=== PATIENT | female | born 1985 | race Caucasian/White ===

== ENCOUNTER 2019-09-28 11:20 | Outpatient (CLI) | payer OTHER, SELFPAY ==
[2019-09-28] VITALS (9 sets, daily range): BP systolic 117–134; BP diastolic 55–81; PULSE 86–113
[2019-09-28 12:03] LABS: Basophils Percent Auto 0.1 % (0.2-1.2); Eosinophils Percent Auto 0.3 % (0-4.4); Hematocrit 34.4 % (37.0-47.0); Hemoglobin 10.8 g/dL (12.0-15.0); Immature Granulocyte Absolute 0.06 K/mm3 (0.00-0.031); Immature Granulocyte Percent A 0.6 % (0-0.5); Lymphocytes Absolute Auto 1.51 K/mm3 (0.9-3.2); Lymphocytes Percent Auto 15.6 % (18.3-44.2); Mean Corpuscular HGB Conc 31.4 g/dl (32-36); Mean Corpuscular Hemoglobin 26.3 pg (26-34); Mean Corpuscular Volume 83.9 fl (80-100); Mean Platelet Volume 10.2 fl (7.4-10.4); Monocytes Absolute Auto 0.7 K/mm3 (0.1-0.6); Monocytes Percent Auto 6.7 % (2.6-8.5); Neutrophils Absolute Auto 7.4 K/mm3 (1.3-6.7); Neutrophils Percent Auto 76.7 % (45.5-73.1); Platelet Count Result 268 k/mm3 (150-375); Red Cell Distribution Width 13.3 % (11.5-14.5); White Blood Count 9.7 K/mm3 (4.5-10.0)
[2019-09-28 12:05] LABS: Add Urine Microscopic? NO; Appearance Urine Clear (Clear); Bilirubin Urine Negative (Negative); Blood Urine Negative (Negative); Color Urine Colorless (Yellow); Glucose Urine UA Negative (Negative); Ketones Urine Negative (Negative); Leukocyte Esterase Ur Negative LEU/UL (Negative); Nitrate Urine Negative (Negative); Protein Urine Negative (Negative); Urobilinogen Urine Negative mg/dL (<2.0)
[2019-09-28 12:06] LABS: Specific Grav Ur 1.003 (1.001-1.035)
[2019-09-28 12:12] LABS: Creatinine Urine 12.3 mg/dL; Total Protein Urine Random 13 mg/dL
[2019-09-28 12:16] LABS: Alanine Aminotransferase 15 U/L (4-35); Albumin Level 3.5 g/dL (3.5-5.1); Alkaline Phosphatase 121 U/L (38-126); Aspartate Amino Transferase 22 U/L (14-36); Bilirubin,Total 0.3 mg/dL (0.2-1.3); Blood Urea Nitrogen 8 mg/dL (7-17); Calcium 8.8 mg/dL (8.4-10.2); Carbon Dioxide 22 mmol/L (22-30); Chloride 107 mmol/L (98-107); Estimated Glomerular Filt Rate > 60; Glucose 110 mg/dL (65-105); Sodium 135 mmol/L (137-145); Uric Acid 2.8 mg/dL (2.5-7.5)
--- NOTE | 2019-09-28 13:26 | PM.OBTRLD ---
OB - Triage/Final Diagnosis Visit Information Date of evaluation: 09/28/19 Reason for evaluation: other (htn) Evaluation Laboratory results: Laboratory Tests 09/28/19 09/28/19 09/28/19 11:50 11:50 11:50 WBC 9.7 RBC 4.10 L Hgb 10.8 L Hct 34.4 L MCV 83.9 MCH 26.3 MCHC 31.4 L RDW 13.3 Plt Count 268 MPV 10.2 Immature Gran % (Auto) 0.6 H Neut % (Auto) 76.7 H Lymph % (Auto) 15.6 L [place] % (Auto) 6.7 Eos % (Auto) 0.3 Baso % (Auto) 0.1 L Lymph # (Auto) 1.51 [place] # (Auto) 0.7 H Eos # (Auto) 0.0 Baso # (Auto) 0.0 Abs Immat Gran (auto) 0.06 H Absolute Neuts (auto) 7.4 H Absolute Nucleated RBC 0.0 Nucleated RBC % 0.0 Sodium 135 L Potassium 4.0 Chloride 107 Carbon Dioxide 22 BUN 8 Creatinine 0.50 L Estim Creat Clear Calc Not Reportable Estimated GFR > 60 Glucose 110 H Uric Acid 2.8 Calcium 8.8 Total Bilirubin 0.3 AST 22 ALT 15 Alkaline Phosphatase 121 Total Protein 7.0 Albumin 3.5 Urine Color Urine Appearance Urine pH Ur Specific [place] Urine Protein Urine Glucose (UA) Urine Ketones Ur Blood (Man) Urine Nitrate Urine Bilirubin Urine Urobilinogen Leukocyte Esterase Rfl U Random Total Protein 13 Urine Creatinine 12.3 09/28/19 11:50 WBC RBC Hgb Hct MCV MCH MCHC RDW Plt Count MPV Immature Gran % (Auto) Neut % (Auto) Lymph % (Auto) [place] % (Auto) Eos % (Auto) Baso % (Auto) Lymph # (Auto) [place] # (Auto) Eos # (Auto) Baso # (Auto) Abs Immat Gran (auto) Absolute Neuts (auto) Absolute Nucleated RBC Nucleated RBC % Sodium Potassium Chloride Carbon Dioxide BUN Creatinine Estim Creat Clear Calc Estimated GFR Glucose Uric Acid Calcium Total Bilirubin AST ALT Alkaline Phosphatase Total Protein Albumin Urine Color Colorless Urine Appearance Clear Urine pH 7.0 Ur Specific [place] 1.003 Urine Protein Negative Urine Glucose (UA) Negative Urine Ketones Negative Ur Blood (Man) Negative Urine Nitrate Negative Urine Bilirubin Negative Urine Urobilinogen Negative Leukocyte Esterase Rfl Negative U Random Total Protein Urine Creatinine Vital signs: Vital Signs - 24 hr 09/28/19 11:44 09/28/19 12:00 09/28/19 12:01 Pulse Rate 100 113 H 96 Blood Pressure 134/80 128/62 Blood Pressure [Right Arm] 134/80 09/28/19 12:16 09/28/19 12:31 09/28/19 12:46 Pulse Rate 91 86 89 Blood Pressure 117/69 119/60 123/55 L Blood Pressure [Right Arm] 09/28/19 13:01 09/28/19 13:15 Pulse Rate 104 H 95 Blood Pressure 122/81 132/75 Blood Pressure [Right Arm]
--- NOTE | 2019-09-28 13:27 | PM.IMHP ---
H&P: HPI History of Present Illness Chief complaint: pih Narrative: Angelica Christianson is a 33 year old female her 2 para 1 with last menstrual period of 01/10/2019, EDC of 10/17/2019, presenting at 37 and half weeks gestation for repeat section. Her previous section was because of present -induced hypertension. Blood pressures have been worsening she has negative PIH labs that this is how it began last time. In light of her good dates and worsening blood pressure she is admitted for repeat section. Review of Systems Review of Systems: All systems reviewed & are unremarkable except as noted in HPI and below Meds Home Medications and Allergies Home Medications Medication Instructions Recorded Confirmed Type multivit [id number]-zgacli 1-dha 1 cap PO DAILY 05/11/19 09/28/19 History [PNV-DHA] ergocalciferol (vitamin D2) 50,000 unit PO WEEKLY 09/28/19 09/28/19 History Allergies Allergy/AdvReac Type Severity Reaction Status Date / Time amoxicillin Allergy Hives Verified 05/11/19 17:58 Vital Signs Vital Signs - 24 hr 09/28/19 11:44 09/28/19 12:00 09/28/19 12:01 Pulse Rate 100 113 H 96 Blood Pressure 134/80 128/62 Blood Pressure [Right Arm] 134/80 09/28/19 12:16 09/28/19 12:31 09/28/19 12:46 Pulse Rate 91 86 89 Blood Pressure 117/69 119/60 123/55 L Blood Pressure [Right Arm] 09/28/19 13:01 09/28/19 13:15 Pulse Rate 104 H 95 Blood Pressure 122/81 132/75 Blood Pressure [Right Arm] Exam Const: General: no acute distress Eyes: General: appearance normal, both eyes and all related structures Neck: Neck: supple and no JVD Thyroid: thyroid normal Resp: Effort & Inspection: normal respiratory effort Auscultation: clear to auscultation bilaterally Cardio: Rate: regular rate Rhythm: regular rhythm GI: Inspection: non-distended GI Palp: Yes Soft to palpation, No Tenderness to palpation present (GI) and No Guarding due to palpation present (GI) Auscultation: normal bowel sounds : General: Yes bladder normal to palpation External Female Exam: normal external appearance Speculum Exam - Vagina: normal vaginal discharge and No vaginal bleeding Speculum Exam - Cervix: nontender Bimanual exam- vagina & uterus: bladder normal to palpation and No Cervical tenderness present OB/external & speculum: No vaginal bleeding Skin: General skin exam: no rashes or lesions noted Extrem: General: normal to inspection and no edema Psych: Mental Status: mental status grossly normal Affect: normal affect H&P: Results Labs Labs: Short CBC 09/28/19 Range/Units 11:50 WBC 9.7 (4.5-10.0) K/mm3 Hgb 10.8 L (12.0-15.0) g/dL Hct 34.4 L (37.0-47.0) % Plt Count 268 (150-375) k/mm3 BMP 09/28/19 11:50 Sodium 135 L Potassium 4.0 Chloride 107 Carbon Dioxide 22 BUN 8 Creatinine 0.50 L Glucose 110 H Calcium 8.8 Liver Function 09/28/19 Range/Units 11:50 Total Bilirubin 0.3 (0.2-1.3) mg/dL AST 22 (14-36) U/L ALT 15 (4-35) U/L Alkaline Phosphatase 121 (38-126) U/L Albumin 3.5 (3.5-5.1) g/dL Urine 09/28/19 Range/Units 11:50 Urine Color Colorless (Yellow) Urine Appearance Clear (Clear) Urine pH 7.0 (5.0-9.0) Ur Specific [place] 1.003 (1.001-1.035) Urine Protein Negative (Negative) mg/dL Urine Glucose (UA) Negative (Negative) mg/dL Assessment and Plan Additional Plan Impression: 37 and half week with worsening hypertension Plan: Repeat low-transverse section
== END 2019-09-28 13:30 | disposition home or self-care (01) ==
LOC: ANHOBOP 11:26 → ANHOBPP 11:27
PROVIDERS: Family Provider Obstetrics & Gynecology; Visit Provider Obstetrics & Gynecology
DX: O13.9 Gestational [pregnancy-induced] hypertension without significant proteinuria, unspecified trimester (principal)
CPT/HCPCS: 36415; 59025; 80053; 81003; 82570; 84156; 84550; 85025; 99199

== ENCOUNTER 2019-11-06 08:22 | Outpatient (CLI) | payer OTHER, SELFPAY ==
[2019-11-06 08:39] LABS: Hematocrit 35.3 % (37.0-47.0); Hemoglobin 11.1 g/dL (12.0-15.0)
[2019-11-06 12:49] LABS: Rapid Plasma Reagin Non-Reactive (NonReactive)
== END 2019-11-06 08:23 | disposition home or self-care (01) ==
LOC: ANHLAB 08:24
PROVIDERS: Visit Provider Obstetrics & Gynecology
DX: Z01.818 Encounter for other preprocedural examination (principal)
CPT/HCPCS: 36415; 85014; 85018; 86592; 86850; 86900; 86901

== ENCOUNTER 2019-11-08 05:25 | Inpatient (IN) | payer OTHER, SELFPAY ==
--- NOTE | 2019-10-18 14:01 | PC.NURSE ---
VERIFIED WITH PATIENT AND OR SCHEDULE --C/S ON 11/08/19 AT 0730 PATIENT GIVEN REQUISITION FOR LAB DRAW ON 11/06/19
--- NOTE | 2019-11-04 07:22 | PM.IMHP ---
H&P: HPI History of Present Illness Chief complaint: Pre-In Narrative: Angelica Christianson is a 34 year old female G3 para 1011 whose last menstrual period was 02/08/2019, EDC is 11/15/2019, presents at 39 weeks gestation for repeat section. She has a 7 week ultrasound confirming dates. Her has been complicated by mildly elevated blood pressures but normal PIH labs. She is positive for group B strep and pediatricians will be made aware. Review of Systems Review of Systems: All systems reviewed & are unremarkable except as noted in HPI and below PMFSH Family History Family History Other Unknown family medical history Social History Social History Substance use: never Spiritual care concerns: No Meds Home Medications and Allergies Home Medications Medication Instructions Recorded Confirmed Type multivit 09-cvla-[id number] 1-dha 1 cap PO DAILY 05/11/19 09/28/19 History [PNV-DHA] ergocalciferol (vitamin D2) 50,000 unit PO WEEKLY 09/28/19 09/28/19 History Allergies Allergy/AdvReac Type Severity Reaction Status Date / Time amoxicillin Allergy Intermediate Hives Verified 10/18/19 13:40 Exam Const: General: no acute distress Eyes: General: appearance normal, both eyes and all related structures Neck: Neck: supple and no JVD Thyroid: thyroid normal Resp: Effort & Inspection: normal respiratory effort Auscultation: clear to auscultation bilaterally Cardio: Rate: regular rate Rhythm: regular rhythm GI: Inspection: normal to inspection ( Gravid soft uterus) : General: Yes other ( cervix was closed.) Skin: General skin exam: no rashes or lesions noted Extrem: General: normal to inspection and no edema Psych: Mental Status: mental status grossly normal Affect: normal affect Assessment and Plan Additional Plan Impression: Term 39 weeks gestation. Previous section. Positive group B strep carrier Plan: Repeat low-transverse section. Pediatricians will be made aware group B strep positivity
[2019-11-08] VITALS (53 sets, daily range): BP systolic 98–137; BP diastolic 27–78; PULSE 56–97; RESP 11–18; TEMP 36.1–37.4; O2SAT 97–100; BMI 44.1
[2019-11-08 06:05] LABS: Basophils Absolute Auto 0.1 K/mm3 (0.0-0.1); Basophils Percent Auto 0.5 % (0.2-1.2); Eosinophils Absolute Auto 0.1 K/mm3 (0-0.3); Eosinophils Percent Auto 0.8 % (0-4.4); Hematocrit 35.5 % (37.0-47.0); Hemoglobin 11.4 g/dL (12.0-15.0); Immature Granulocyte Absolute 0.04 K/mm3 (0.00-0.031); Immature Granulocyte Percent A 0.4 % (0-0.5); Lymphocytes Absolute Auto 2.38 K/mm3 (0.9-3.2); Lymphocytes Percent Auto 25.9 % (18.3-44.2); Mean Corpuscular HGB Conc 32.1 g/dl (32-36); Mean Corpuscular Hemoglobin 26.4 pg (26-34); Mean Corpuscular Volume 82.2 fl (80-100); Mean Platelet Volume 11.3 fl (7.4-10.4); Monocytes Absolute Auto 0.7 K/mm3 (0.1-0.6); Monocytes Percent Auto 7.7 % (2.6-8.5); Neutrophils Percent Auto 64.7 % (45.5-73.1); Platelet Count Result 268 k/mm3 (150-375); Red Blood Count 4.32 M/mm3 (4.2-5.4); Red Cell Distribution Width 14.3 % (11.5-14.5); White Blood Count 9.2 K/mm3 (4.5-10.0)
--- NOTE | 2019-11-08 06:30 | WPDHPUPDATE1 ---
History and Physical Update Update Date/Time: 11/08/19 06:30 History and Physical has been reviewed, including an updated exam of the patient. There are NO changes in the patient's condition. Risks, benefits, and alternatives have been discussed and questions answered. Patient agrees to proceed with procedure.
--- NOTE | 2019-11-08 06:30 | PM.DS ---
DS: Admitting Diagnosis Admitting Diagnosis Admitting Diagnosis: term/prev c section <Anam Bhagat MD - Last Filed: 11/08/19 06:30> DS: Summary Status at Discharge Functional status at discharge: independent ambulation <Magdaleno Torres MD - Last Filed: 11/10/19 08:30> Overall status at discharge: patient is progressing back to baseline <Magdaleno Torres MD - Last Filed: 11/10/19 08:30> Time Spent with Patient Time attestation: Total time spent providing and/or coordinating discharge services: <Anam Bhagat MD - Last Filed: 11/08/19 06:30> Time spent: Less than 30 minutes <Magdaleno Torres MD - Last Filed: 11/10/19 08:30> Exam Const: General: no acute distress <Anam Bhagat MD - Last Filed: 11/08/19 06:30> General: comfortable and no acute distress <Magdaleno Torres MD - Last Filed: 11/10/19 08:30> Eyes: General: appearance normal, both eyes and all related structures <Anam Bhagat MD - Last Filed: 11/08/19 06:30> Neck: Neck: supple and no JVD <Anam Bhagat MD - Last Filed: 11/08/19 06:30> Thyroid: thyroid normal <Anam Bhagat MD - Last Filed: 11/08/19 06:30> Resp: Effort & Inspection: normal respiratory effort <Anam Bhagat MD - Last Filed: 11/08/19 06:30> Effort & Inspection: normal respiratory effort <Magdaleno Torres MD - Last Filed: 11/10/19 08:30> Auscultation: clear to auscultation bilaterally <Anam Bhagat MD - Last Filed: 11/08/19 06:30> Auscultation: clear to auscultation bilaterally <Magdaleno Torres MD - Last Filed: 11/10/19 08:30> Cardio: Rate: regular rate <Anam Bhagat MD - Last Filed: 11/08/19 06:30> Rate: regular rate <Magdaleno Torres MD - Last Filed: 11/10/19 08:30> Rhythm: regular rhythm <Anam Bhagat MD - Last Filed: 11/08/19 06:30> GI: Inspection: non-distended <Anam Bhagat MD - Last Filed: 11/08/19 06:30> Inspection: non-distended <Magdaleno Torres MD - Last Filed: 11/10/19 08:30> GI Palp: Yes Soft to palpation, No Tenderness to palpation present (GI) and No Guarding due to palpation present (GI) <Anam Bhagat MD - Last Filed: 11/08/19 06:30> GI Palp: Yes Soft to palpation, No Firmness to palpation present (GI), Yes Tenderness to palpation present (GI) (mild tenderness over incision ) and No Guarding due to palpation present (GI) <Magdaleno Torres MD - Last Filed: 11/10/19 08:30> Auscultation: normal bowel sounds <Anam Bhagat MD - Last Filed: 11/08/19 06:30> Auscultation: normal bowel sounds <Magdaleno Torres MD - Last Filed: 11/10/19 08:30> : General: Yes bladder normal to palpation <Anam Bhagat MD - Last Filed: 11/08/19 06:30> External Female Exam: normal external appearance <Anam Bhagat MD - Last Filed: 11/08/19 06:30> Speculum Exam - Vagina: normal vaginal discharge and No vaginal bleeding <Anam Bhagat MD - Last Filed: 11/08/19 06:30> Speculum Exam - Cervix: nontender <Anam Bhagat MD - Last Filed: 11/08/19 06:30> Bimanual exam- vagina & uterus: bladder normal to palpation and No Cervical tenderness present <Anam Bhagat MD - Last Filed: 11/08/19 06:30> OB/external & speculum: No vaginal bleeding <Anam Bhagat MD - Last Filed: 11/08/19 06:30> Skin: General skin exam: no rashes or lesions noted <Anam Bhagat MD - Last Filed: 11/08/19 06:30> Extrem: General: normal to inspection and no edema <Anam Bhagat MD - Last Filed: 11/08/19 06:30> Psych: Appearance: grossly normal <Magdaleno Torres MD - Last Filed: 11/10/19 08:30> Mental Status: mental status grossly normal <Anam Bhagat MD - Last Filed: 11/08/19 06:30> Mental Status: mental status grossly normal <Magdaleno Torres MD - Last Filed: 11/10/19 08:30> Affect: normal affect <Anam Bhagat MD - Last Filed: 11/08/19 06:30> DS: Data Data Completed and Pending Labs on day of discharge: Labs from last
[2019-11-08] MEDS: GENTAMICIN SULFATE INJ 440 MG in DEXTROSE 5% 100 ML 111 MG IVPB (07:03)
[2019-11-08] MEDS: LACTATED RINGERS 1,000 ML 999 ML IV CONT (07:04)
[2019-11-08] MEDS: CLINDAMYCIN 900 MG/NS 50 ML 900 MG/50 ML PIGGYBACK 50 MG IVPB (07:13)
[2019-11-08] MEDS: LACTATED RINGERS 1,000 ML 125 ML IV CONT (07:13)
--- NOTE | 2019-11-08 07:20 | WPDANESEPPF ---
Anes - Initial Pre Proc Eval Procedure: Operation Date: 11/08/19 07:30 Proposed Procedures p Repeat Section - Anam Bhagat MD Date/Time: 11/08/19 07:20 Surgeon: Anam Bhagat MD Pre Op Diagnosis: C Section Patient Data Age: 34 Gender: F Height: 1.7 m Weight: 128 kg Last Vital Signs Pulse 93 11/08/19 05:56 BP 135/78 11/08/19 05:56 Allergies Allergy/AdvReac Type Severity Reaction Status Date / Time amoxicillin Allergy Intermediate Hives Verified 10/18/19 13:40 Home Medications Medication Instructions Recorded Confirmed Type multivit 69-kkel-hqjtgk 1-dha 1 cap PO DAILY 05/11/19 11/08/19 History [PNV-DHA] ergocalciferol (vitamin D2) 50,000 unit PO WEEKLY 09/28/19 11/08/19 History hydrocodone-acetaminophen [[place]] 1 tablet PO Q4H PRN #30 tablet 11/08/19 Rx Laboratory Tests 11/08/19 05:54 WBC 9.2 K/mm3 K/mm3 (4.5-10.0) RBC 4.32 M/mm3 M/mm3 (4.2-5.4) Hgb 11.4 g/dL L g/dL (12.0-15.0) Hct 35.5 % L % (37.0-47.0) MCV 82.2 fl fl (80-100) MCH 26.4 pg pg (26-34) MCHC 32.1 g/dl g/dl (32-36) RDW 14.3 % % (11.5-14.5) Plt Count 268 k/mm3 k/mm3 (150-375) MPV 11.3 fl H fl (7.4-10.4) Immature Gran % (Auto) 0.4 % % (0-0.5) Neut % (Auto) 64.7 % % (45.5-73.1) Lymph % (Auto) 25.9 % % (18.3-44.2) [place] % (Auto) 7.7 % % (2.6-8.5) Eos % (Auto) 0.8 % % (0-4.4) Baso % (Auto) 0.5 % % (0.2-1.2) Lymph # (Auto) 2.38 K/mm3 K/mm3 (0.9-3.2) [place] # (Auto) 0.7 K/mm3 H K/mm3 (0.1-0.6) Eos # (Auto) 0.1 K/mm3 K/mm3 (0-0.3) Baso # (Auto) 0.1 K/mm3 K/mm3 (0.0-0.1) Abs Immat Gran (auto) 0.04 K/mm3 H K/mm3 (0.00-0.031) Absolute Neuts (auto) 6.0 K/mm3 K/mm3 (1.3-6.7) Absolute Nucleated RBC 0.0 K/mm3 K/mm3 (0.0-0.012) Nucleated RBC % 0.0 % % (0.0-0.2) Patient hx anesthesia problems: none Family hx anesthesia problems: none [facility] Past Medical History Medical History (Updated 11/08/19 @ 07:21 by Rodolfo Rodriguez MD) Morbid obesity with BMI of 40.0-44.9, adult Family History Family History Other Unknown family medical history Social History Social History Smoking status: Never smoker Substance use: never Spiritual care concerns: No Anes - Eval Final PreProcedure Day of Procedure 11/08/19 07:20 Patient weight: morbidly obese Heart: regular rate and rhythm Lungs: clear to auscultation and normal air movement Airway: Mallampati scale class II Neurological: alert and oriented Last oral intake: >/= 8 hours ASA classification: III Emergent: no Anesthetic plan: proceed Anesthesia type and monitoring: regional spinal Informed Consent: The patient's anesthetic plan and its attendant risks and benefits were discussed with the patient/family/POA. Questions were solicited and answers provided to the satisfaction of the patient/family/POA.
--- NOTE | 2019-11-08 08:08 | PM.PROC ---
Procedure Note - Detailed Date of procedure: 11/08/19 Pre-op diagnosis: C Section Surgeon: Anam Bhagat MD Postop diagnosis term previous section EBL: 570cc Anesthesia: Spinal Findings: Male 8 lb 9 oz with Apgars of 9 and 9 at 1 and 5 minutes respectively Complications: None Procedure: Repeat low-transverse section Description of procedure: The patient is prepped and draped in placed in the supine position. Under excellent spinal anesthetic the abdomen was entered through the previous Pfannenstiel incision. The layers were progressed to the fascia. The fascia was incised in upward outward fashion bilaterally. Underlying muscles sharply dissected. Parietal peritoneum elevated by Allison clamps and entered by sharp dissection. This was carried superiorly and inferiorly the dome of the bladder. Bladder blade was placed a bladder flap was formed. The bladder blade returned. A low-transverse incision made the head delivered in the CARLOS position. Anterior posterior shoulder delivered spontaneously. Cord clamped x2 and cut. Infant passed off the table given Apgars of 9 [id number]. Cord blood was drawn. Placenta delivered intact manually and delivered from the uterus delivered the abdomen. The uterus was then inspected for debris and once clear the uterus was closed with continuous running locking 0 Vicryl from lateral edge to lateral edge. This was followed by a separate imbricating layer a running from lateral edge to lateral edge. Hemostasis was assured. Blood loss was estimated. Ovaries and tubes appeared within normal limits. There was a small fibroid at the fundus. The uterus returned to the abdomen. The hysterotomy incision inspected 1 last time and noted be hemostatic. The laps removed and accounted for. The fascia closed with continuous running 0 Vicryl from lateral edge to midline bilaterally. Irrigation the subcutaneous layer. The skin closed with 4 Monocryl and glue. Blood loss was estimated [id number]. All sponge, needle, instrument counts were correct. Mom and baby are doing fine at the time of dictation
[2019-11-08] MEDS: OXYTOCIN 30 UNITS/NS 500 ML 30 UNITS/500 ML BAG 125 UNITS IV CONT (10:51)
--- NOTE | 2019-11-08 12:54 | OBPPTRN ---
Patient transferred to post room #292 via stretcher. Support person present. Oriented to unit, room, information board, rooming in, admission packet and security measures. Patient verbalizes understanding.
--- NOTE | 2019-11-08 14:35 | PC.NURSE ---
Consulted with patient, mother reports infant eagerly fed for first feeding. Reviewed feeding cues, frequencies, duration of feedings, feeding elimination flow sheet, and signs of adequate intake. Demonstrated stimulation techniques to wake infant for feeding. Assisted with infant to breast. Reviewed positioning/alignment in cross cradle, holding breast in U hold and guided asymmetrical latch on. was able to latch correctly. nursed eagerly, with steady draws and occasional swallowing noted. Reviewed signs of a correct latch, effective nursing and suck swallow ratio. Infant was able to maintain latch without discomfort to mother. Nipple care reviewed. Suggested mother stimulate to keep infant awake and nursing effectively for increased intake and maintaining deep latch. Instructed mother to call out for RN assistance if she is unable to latch infant for feeding or she has discomfort with nursing. Instructed feeding should be initiated three hours from start of last feeding or if feeding cues are noted before. Mother voiced understanding of information shared.
[2019-11-08] MEDS: DEXTROSE 5%/0.45% SOD CHL 1,000 ML 125 ML IV CONT (15:14)
[2019-11-09] MEDS: IBUPROFEN 600 MG TABLET PO ×3 (00:17→15:38)
[2019-11-09 03:45] VITALS: BP 120/74; PULSE 90; RESP 16; TEMP 36.3; O2SAT 99
[2019-11-09 05:15] LABS: Basophils Percent Auto 0.2 % (0.2-1.2); Eosinophils Absolute Auto 0.1 K/mm3 (0-0.3); Eosinophils Percent Auto 0.7 % (0-4.4); Hemoglobin 8.9 g/dL (12.0-15.0); Immature Granulocyte Absolute 0.04 K/mm3 (0.00-0.031); Immature Granulocyte Percent A 0.4 % (0-0.5); Lymphocytes Absolute Auto 1.84 K/mm3 (0.9-3.2); Lymphocytes Percent Auto 18.8 % (18.3-44.2); Mean Corpuscular HGB Conc 31.8 g/dl (32-36); Mean Corpuscular Hemoglobin 26.3 pg (26-34); Mean Corpuscular Volume 82.8 fl (80-100); Mean Platelet Volume 11.2 fl (7.4-10.4); Monocytes Absolute Auto 0.8 K/mm3 (0.1-0.6); Monocytes Percent Auto 7.8 % (2.6-8.5); Neutrophils Percent Auto 72.1 % (45.5-73.1); Platelet Count Result 216 k/mm3 (150-375); Red Blood Count 3.38 M/mm3 (4.2-5.4); Red Cell Distribution Width 14.6 % (11.5-14.5); White Blood Count 9.8 K/mm3 (4.5-10.0)
--- NOTE | 2019-11-09 06:23 | P.PNOB_ITS ---
OB - PN: Subj Subjective Date/time seen: 11/09/19 06:23 Patient comments: no complaints and pain well controlled baby status: doing well and nursing well OB - PN: Obj Data Labs CBC & Chem 7: 11/09/19 03:47 Labs: Laboratory Results - last 24 hr 11/09/19 03:47 WBC 9.8 RBC 3.38 L Hgb 8.9 L Hct 28.0 L MCV 82.8 MCH 26.3 MCHC 31.8 L RDW 14.6 H Plt Count 216 MPV 11.2 H Immature Gran % (Auto) 0.4 Neut % (Auto) 72.1 Lymph % (Auto) 18.8 [place] % (Auto) 7.8 Eos % (Auto) 0.7 Baso % (Auto) 0.2 Lymph # (Auto) 1.84 [place] # (Auto) 0.8 H Eos # (Auto) 0.1 Baso # (Auto) 0.0 Abs Immat Gran (auto) 0.04 H Absolute Neuts (auto) 7.0 H Absolute Nucleated RBC 0.0 Nucleated RBC % 0.0 OB - PN A/P Plan day: 1 Plan: routine care Time Spent With Patient Time: Total time spent is greater than 50% in coordination of care (as docum ented) at patient's floor/unit and/or counseling patient: Time with patient: less than 15 minutes Review of Systems Review of Systems: All systems reviewed & are unremarkable except as noted in HPI and below Exam Const: General: no acute distress Eyes: General: appearance normal, both eyes and all related structures Neck: Neck: supple and no JVD Thyroid: thyroid normal Resp: Effort & Inspection: normal respiratory effort Auscultation: clear to auscultation bilaterally Cardio: Rate: regular rate Rhythm: regular rhythm GI: Inspection: normal to inspection and incision (cdi) : General: Yes bladder normal to palpation External Female Exam: normal external appearance Speculum Exam - Vagina: normal vaginal discharge and No vaginal bleeding Speculum Exam - Cervix: nontender Bimanual exam- vagina & uterus: bladder normal to palpation and No Cervical tenderness present OB/external & speculum: No vaginal bleeding Skin: General skin exam: no rashes or lesions noted Extrem: General: normal to inspection and no edema Psych: Mental Status: mental status grossly normal Affect: normal affect
[2019-11-09 07:40] VITALS: BP 134/77; PULSE 86; RESP 18; TEMP 37.1; O2SAT 99
--- NOTE | 2019-11-09 08:04 | WPDANLDPN2 ---
Anes-Prog Note L&D Date/Time: 11/09/19 08:04 Comfortable throughout: section Neuraxial method: spinal Epidural/Spinal procedure site: clean & non-tender Neuro status: Neuro function grossly intact. Cardiovascular status: normal Respiratory status: normal Airway patency: baseline Mental status: baseline Post-Op hydration status: normal Vital Signs: Last Vital Signs Temp 97.3 F L 11/09/19 03:45 Pulse 90 11/09/19 03:45 Resp 16 11/09/19 03:45 BP 120/74 11/09/19 03:45 Pulse Ox 99 11/09/19 03:45 I/O: Intake & Output 11/08/19 11/09/19 11/09/19 23:59 07:59 15:59 Intake Total 2130 500 Output Total 3300 675 Balance -1170 -175 Post-procedural complaints: pruritis mild, no treatment Patient feedback: Patient satisfied with anesthetic care.
--- NOTE | 2019-11-09 08:04 | WPDANLDNPN2 ---
Anes-Prog Note L&D-Neuraxial Date/Time: 11/09/19 08:04 Neuraxial medications: intrathecal PF morphine Opiod-related complaints: pruritis mild, no treatment Patient feedback: Patient satisfied with post-operative pain management.
[2019-11-09] MEDS: MULTIVIT/MIN/PREN/FOL AC/IRON TABLET 1 TAB PO (08:35)
[2019-11-09] MEDS: POLYSACCHARIDE IRON COMPLEX 150 MG CAPSULE PO ×2 (08:36→15:39)
[2019-11-09] MEDS: DOCUSATE SODIUM 100 MG CAPSULE PO ×2 (08:36→15:39)
[2019-11-09 19:51] VITALS: BP 121/62; PULSE 90; RESP 20; TEMP 36.6; O2SAT 99
[2019-11-10] MEDS: IBUPROFEN 600 MG TABLET PO ×2 (00:10→10:47)
[2019-11-10 09:00] VITALS: BP 126/71; PULSE 72; RESP 18; TEMP 36.5
[2019-11-10] MEDS: MULTIVIT/MIN/PREN/FOL AC/IRON TABLET 1 TAB PO (10:47)
[2019-11-10] MEDS: POLYSACCHARIDE IRON COMPLEX 150 MG CAPSULE PO (10:47)
[2019-11-10] MEDS: TETANUS,DIPHTHERIA,AC PERTUSSIS ADULT (0.5 ML) BOOSTRIX (10:48)
[2019-11-11 10:18] VITALS: BP 122/66; PULSE 82; RESP 22
== END 2019-11-10 14:33 | disposition home or self-care (01) | DRG 788 ==
LOC: ANHLDR 05:48 → ANHOB2 11-10 08:29 → ANHLDR 11-11 13:31 → ANHOB2 11-11 13:31
PROVIDERS: Admitting Provider Obstetrics & Gynecology; Visit Provider Student in an Organized Health Care Education/Training Program
PROC: 10D00Z1 Extraction of Products of Conception, Low, Open Approach (ICD-10-PCS; CPT 59514; principal; 2019-11-08 07:30)
DX: O34.211 Maternal care for low transverse scar from previous cesarean delivery (principal); Z37.0 Single live birth; Z3A.39 39 weeks gestation of pregnancy; O99.824 Streptococcus B carrier state complicating childbirth; O99.214 Obesity complicating childbirth; E66.01 Morbid (severe) obesity due to excess calories; O99.73 Diseases of the skin and subcutaneous tissue complicating the puerperium; L29.9 Pruritus, unspecified
CPT/HCPCS: 36415; 85025; 90715; A9270; J0131; J1580; J2274; J2590; J7120

== ENCOUNTER 2022-07-30 09:39 | Emergency (ER) | payer OTHER, SELFPAY ==
[2022-07-30 09:57] VITALS: BP 144/76; PULSE 99; RESP 20; TEMP 36.3; O2SAT 100
--- NOTE | 2022-07-30 10:17 | ED.URI ---
HPI - URI/Sore Throat General Chief Complaint: Upper Respiratory Infection Stated Complaint: Sore Throat,Congestion,Body Aches Time Seen by Provider: 07/30/22 10:00 Source: patient Mode of arrival: ambulatory Limitations: no limitations History of Present Illness HPI Narrative: Angelica is a 36-year-old female patient presenting to the clinic today with complaints of sore throat, congestion, body aches x1 day. She reports that she has had exposure to strep. MD elicited complaint: sore throat and nasal congestion Related Data Allergies Allergy/AdvReac Type Severity Reaction Status Date / Time amoxicillin Allergy Intermediate Hives Verified 07/30/22 10:02 Review of Systems Review of Systems: Pertinent positives per HPI. Patient denies any fever, chills, rash, headache, visual changes, dizziness, cough, shortness of breath, chest pain, palpitations, nausea, vomiting, diarrhea, constipation, abdominal pain, or any urinary issues. [facility] Past Medical History Medical History (Updated 07/30/22 @ 10:18 by Alvino Rodriguez, CARMINA) Morbid obesity with BMI of 40.0-44.9, adult Family History Family History Other Unknown family medical history Social History Social History Smoking status: Never smoker Substance use: never Spiritual care concerns: No Comments At the time of my signature, I reviewed and agree with the nursing past medical, surgical, social, and family history. There is no relevant family history pertinent to the patient complaint. Exam Narrative: General: Well-developed, obese, in no apparent distress Head: Normocephalic, atraumatic Eyes: Pupils equally round and reactive to light bilaterally, EOM intact, sclera and conjunctive clear, no discharge, lids normal Ears: TMs intact and clear, ear canals clear, no drainage, grossly hearing normal. Nose: Nares patent, no discharge, no inflammation, no sinus tenderness. Mouth: Oral pharynx without lesions or masses, good dentition, MMM. Oropharynx reveals bilateral tonsillar enlarged Neck: Supple, trachea midline, enlargement of anterior cervical nodes, no thyroid masses or goiter palpable. Cardio: Regular rate and rhythm, s1 and s2 normal, no murmur appreciated. Resp: Clear to auscultation bilaterally, no rhonchi, rales, wheezing or rubs Course Course Emergency Course: Portions of this record may have been created with voice recognition software. Level of Care: Express Care Visit Vital Signs Vital signs: Vital Signs Temperature 36.3 C L 07/30/22 09:57 Pulse Rate 99 07/30/22 09:57 Respiratory Rate 20 07/30/22 09:57 Blood Pressure 144/76 H 07/30/22 09:57 Pulse Oximetry 100 07/30/22 09:57 Oxygen Delivery Room Air 07/30/22 09:57 Temperature 36.3 C L 07/30/22 09:57 Pulse Rate 99 07/30/22 09:57 Respiratory Rate 20 07/30/22 09:57 Blood Pressure 144/76 H 07/30/22 09:57 Pulse Oximetry 100 07/30/22 09:57 Oxygen Delivery Room Air 07/30/22 09:57 Vital signs reviewed MDM - URI/Sore Throat MDM Narrative Medical decision making narrative: At the time of visit patient is resting comfortably on exam table. Strep screen was obtained was positive and COVID testing was negative. Will send in prescription for azithromycin as she has allergies to amoxicillin. Supportive measures were discussed with the patient she voiced understanding discharge instructions agrees to treatment plan. Differential Diagnosis Differential diagnosis: Likely sinusitis, viral infection, influenza and pharyngitis Lab Data Labs: Strep Screen Positive Group A Strep *(Reference Range: Negative)* Discharge Plan Discharge Clinical Impression: Acute streptococcal pharyngitis Patient Disposition: Home, Self-Care Condition: Stable Instructions: Antibiotic Fo
== END 2022-07-30 10:23 | disposition home or self-care (01) ==
PROVIDERS: Emergency Provider Nurse Practitioner Family
DX: J02.0 Streptococcal pharyngitis (principal); E66.01 Morbid (severe) obesity due to excess calories; Z68.31 Body mass index [BMI] 31.0-31.9, adult; Z20.822 Contact with and (suspected) exposure to COVID-19
CPT/HCPCS: 87426; 87880; 99213; C9803; G0463

== ENCOUNTER 2022-11-16 08:52 | Emergency (ER) | payer OTHER, SELFPAY ==
[2022-11-16 09:07] VITALS: BP 141/79; PULSE 91; RESP 18; TEMP 36.5; O2SAT 99
--- NOTE | 2022-11-16 09:27 | ED.URI ---
HPI - URI/Sore Throat General Chief Complaint: Upper Respiratory Infection Stated Complaint: sorthroat Time Seen by Provider: 11/16/22 09:15 Source: patient and RN notes reviewed Mode of arrival: ambulatory Limitations: no limitations History of Present Illness HPI Narrative: Patient presents today complaining of a 5 day history of sore throat, sinus pressure and occasional cough. Today she woke up with a red and crusty left eye. Denies vision changes. She has been taking DayQuil and ibuprofen with some relief. States sinus in sore throat symptoms significantly improved yesterday, but worsened again this morning. Related Data Allergies Allergy/AdvReac Type Severity Reaction Status Date / Time amoxicillin Allergy Intermediate Hives Verified 07/30/22 10:02 Review of Systems Review of Systems: CONSTITUTIONAL: Denies body aches, fever, chills, or sweats. EYES: Denies visual changes. + left eye redness and crusting ENT: Denies rhinorrhea, otalgia.+ sinus pressure, sore throat, congestion CARDIOVASCULAR: Denies chest pain, palpitations, or edema. RESPIRATORY: Denies cough or dyspnea. GASTROINTESTINAL: Denies abdominal pain, nausea, vomiting, or diarrhea. GENITOURINARY: Denies dysuria or hematuria. SKIN: Denies rash, itching, or wounds. MUSCULOSKELETAL: Denies back pain, joint pain, or myalgia. NEUROLOGIC: Denies headache, numbness, tingling, or weakness. PSYCH: Denies depression or anxiety. PMFSH Past Medical History Medical History Morbid obesity with BMI of 40.0-44.9, adult Family History Family History Other Unknown family medical history Social History Social History Smoking status: Never smoker Substance use: never Spiritual care concerns: No Comments At time of signature, I have reviewed and agree with nursing past medical, surgical, social and family history unless otherwise noted. Please see nursing chart for further information. There is no relevant family history pertinent to the presenting complaint Exam Narrative: GENERAL: Well-appearing, well-nourished, and in no acute distress. HEAD: Normocephalic, atraumatic. EYES: EOMI. PERRL. Right eye normal. Left eye: Mildly injected conjunctiva. No obvious drainage noted. Lids and lashes normal. ENT: Mucous membranes pink and moist. Nares congested. No rhinorrhea. TMs normal bilaterally. Throat mildly erythematous without edema or exudate. Uvula midline. NECK: Normal AROM. Supple. No lymphadenopathy. CHEST: No respiratory distress. Clear to auscultation. HEART: Regular rate and rhythm. No murmur appreciated. EXTREMITIES: Normal range of motion. No edema. SKIN: Warm, dry, no rash. Capillary refill normal. Normal skin turgor. NEURO: No focal deficits. Alert and oriented x3. Gait steady. PSYCH: Normal affect. No signs of depression or anxiety. Course Course Level of Care: Express Care Visit Vital Signs Vital signs: Vital Signs Temperature 97.7 F 11/16/22 09:07 Pulse Rate 91 11/16/22 09:07 Respiratory Rate 18 11/16/22 09:07 Blood Pressure 141/79 H 11/16/22 09:07 Pulse Oximetry 99 11/16/22 09:07 Oxygen Delivery Room Air 11/16/22 09:07 Temperature 97.7 F 11/16/22 09:07 Pulse Rate 91 11/16/22 09:07 Respiratory Rate 18 11/16/22 09:07 Blood Pressure 141/79 H 11/16/22 09:07 Pulse Oximetry 99 11/16/22 09:07 Oxygen Delivery Room Air 11/16/22 09:07 Reviewed. Pt has been instructed to follow up with her PCP regarding her elevated blood pressure today. MDM - URI/Sore Throat MDM Narrative Medical decision making narrative: Patient is exhibiting double worsening and exam is consistent with bacterial sinusitis. Will treat her with doxycycline and ofloxacin for presumed bacterial conjunctivitis. Anticipatory kami
== END 2022-11-16 09:40 | disposition home or self-care (01) ==
PROVIDERS: Emergency Provider Nurse Practitioner
DX: J01.90 Acute sinusitis, unspecified (principal); H10.32 Unspecified acute conjunctivitis, left eye; E66.01 Morbid (severe) obesity due to excess calories; Z68.36 Body mass index [BMI] 36.0-36.9, adult
CPT/HCPCS: 87081; 87880; 99213; G0463

== ENCOUNTER 2023-10-27 12:48 | Emergency (ER) | payer OTHER, SELFPAY ==
[2023-10-27 13:02] VITALS: BP 134/78; PULSE 113; RESP 18; TEMP 36.9; O2SAT 100
[2023-10-27 13:03] VITALS: BP 134/78; PULSE 113; RESP 18; TEMP 36.9; O2SAT 100
--- NOTE | 2023-10-27 13:03 | ED.URI ---
HPI - URI/Sore Throat General Chief Complaint: Upper Respiratory Infection Stated Complaint: Cold symptoms History of Present Illness HPI Narrative: 38-year-old female presented for complaint of sore throat, headache, body aches and fever. Onset last night. States it feels similar to the strep she has had in the past. Not taking anything for symptoms. Denies shortness of breath, wheezing, vomiting or lethargy. Related Data Allergies Allergy/AdvReac Type Severity Reaction Status Date / Time amoxicillin Allergy Intermediate Hives Verified 10/27/23 13:03 Review of Systems Review of Systems: CONSTITUTIONAL: Reports body aches, fever, chills EYES: Denies visual changes, redness, or discharge. ENT: Reports sore throat Denies rhinorrhea, congestion, or otalgia. CARDIOVASCULAR: Denies chest pain, palpitations, or edema. RESPIRATORY: Denies dyspnea. GASTROINTESTINAL: Denies abdominal pain, nausea, vomiting, or diarrhea. SKIN: Denies rash, itching, or wounds. MUSCULOSKELETAL: Denies back pain, joint pain, or myalgia. [facility] Past Medical History Medical History Morbid obesity with BMI of 40.0-44.9, adult Family History Family History Other Unknown family medical history Social History Social History Smoking status: Never smoker Substance use: never Spiritual care concerns: No Exam Narrative: GENERAL: well-appearing, no acute distress. EYES: conjunctivae clear ENT: Mucous membranes moist. TM pearly montes with normal light reflex bilaterally; no tragal tenderness. Oropharynx erythematous without lesions. Tonsils enlarged 1+ with exudate. No drooling, no hoarseness, no trismus, uvula midline. No tripod positioning, hot potato voice, or soft palate swelling. NECK: Supple. No lymphadenopathy CHEST: Clear to auscultation, breath sounds equal. No respiratory distress, speaks in full sentences. HEART: Regular rate and rhythm. No murmur heard. SKIN: Warm, dry, no rash. NEURO: Alert and oriented x3. Course Course Emergency Course: Patient is aware of diagnosis, understands and agrees to treatment plan. Anticipatory guidance given. Patient agrees to follow-up as directed and is aware of reasons to seek care at the emergency department. Portions of this record may have been created with voice recognition software Level of Care: Express Care Visit Vital Signs Vital signs: Vital Signs Temperature 98.5 F 10/27/23 13:02 Pulse Rate 113 H 10/27/23 13:02 Respiratory Rate 18 10/27/23 13:02 Blood Pressure 134/78 10/27/23 13:02 Pulse Oximetry 100 10/27/23 13:02 Oxygen Delivery Room Air 10/27/23 13:02 Temperature 98.5 F 10/27/23 13:02 Pulse Rate 113 H 10/27/23 13:02 Respiratory Rate 18 10/27/23 13:02 Blood Pressure 134/78 10/27/23 13:02 Pulse Oximetry 100 10/27/23 13:02 Oxygen Delivery Room Air 10/27/23 13:02 MDM - URI/Sore Throat MDM Narrative Medical decision making narrative: POS strep result reviewed with pt. Advise supportive treatments. Patient is appropriate for outpatient treatment and follow-up. Differential Diagnosis Differential diagnosis: Likely upper respiratory infection, viral infection and pharyngitis Discharge Plan Discharge Clinical Impression: Strep pharyngitis Patient Disposition: Home, Self-Care Condition: Stable Instructions: Antibiotic Form, Strep Throat (ED) Additional Instructions: - Take the antibiotic as directed. Fever and sore throat typically resolve within one to three days. Most patients can return to work after 12 to 24 hours of antibiotic therapy, provided you are fever free and otherwise well. -Eat and drink things that are easy to swallow, like soft foods, cool liquids, tea with honey, or popsicles . -Salt water gargles and/or may use topi
== END 2023-10-27 13:25 | disposition home or self-care (01) ==
PROVIDERS: Emergency Provider Nurse Practitioner Family; PCP Internal Medicine
DX: J02.0 Streptococcal pharyngitis (principal); E66.01 Morbid (severe) obesity due to excess calories; Z68.39 Body mass index [BMI] 39.0-39.9, adult
CPT/HCPCS: 87880; 99213; G0463

== ENCOUNTER 2024-01-07 11:14 | Outpatient (CLI) | payer OTHER, SELFPAY ==
--- NOTE | ~2024-01-07 | MM_ITS ---
EXAMINATION: MM screening emily BI w chai HISTORY: Screening TECHNIQUE: Craniocaudal and mediolateral oblique 3-D tomosynthesis images were obtained and synthetic 2-D images were generated. CAD analysis was submitted and interpreted. COMPARISON: No prior studies for comparison. BREAST PARENCHYMAL COMPOSITION: There are scattered areas of fibroglandular density. FINDINGS: There is no evidence of suspicious mass, calcification, or architectural distortion to sugg est malignancy in either breast. There has been no suspicious interval change. IMPRESSION: 1. No mammographic evidence of malignancy. 2. Recommend routine screening mammography in one year. BI-RADS Category 1: Negative Reviewed, dictated and finalized at location B.
== END 2024-01-07 11:15 ==
LOC: MICIMG 11:15
PROVIDERS: PCP Obstetrics & Gynecology; Visit Provider Obstetrics & Gynecology
DX: Z12.31 Encounter for screening mammogram for malignant neoplasm of breast (principal); Z80.3 Family history of malignant neoplasm of breast
CPT/HCPCS: 77063; 77067

== ENCOUNTER 2024-05-21 08:47 | Emergency (ER) | payer OTHER, SELFPAY ==
--- NOTE | 2024-05-21 09:05 | ED_ITS ---
HPI - URI/Sore Throat General Chief Complaint: Upper Respiratory Infection Stated Complaint: cough/congestion/sinus pressure Time Seen by Provider: 05/21/24 09:20 Source: patient Mode of arrival: ambulatory Limitations: no limitations History of Present Illness HPI Narrative: Angelica is a 38-year-old female patient presenting to the clinic today with complaints of cough, sore throat, nasal drainage in the back of her throat, nasal congestion, and sinus pressure times 5-6 weeks. She denies any chest pain or shortness of breath currently. States that she will be sick and then start to feel better for couple days and then get sick again. Denies any fevers, chills, or body aches currently. MD elicited complaint: cough, sore throat and nasal congestion Related Data Allergies Allergy/AdvReac Type Severity Reaction Status Date / Time amoxicillin Allergy Intermediate Hives Verified 05/21/24 09:13 Review of Systems Review of Systems: Pertinent positives per HPI. Patient denies any fever, chills, rash, headache, visual changes, dizziness, shortness of breath, chest pain, palpitations, nausea, vomiting, diarrhea, constipation, abdominal pain, or any urinary issues. [facility] Past Medical History Medical History Morbid obesity with BMI of 40.0-44.9, adult Family History Family History Other Unknown family medical history Social History Social History Smoking status: Never smoker Substance use: never Spiritual care concerns: No Comments At the time of my signature, I reviewed and agree with the nursing past medical, surgical, social, and family history. There is no relevant family history pertinent to the patient complaint. Exam Narrative: General: Well-developed, morbidly obese, in no apparent distress Head: Normocephalic, atraumatic Eyes: Pupils equally round and reactive to light bilaterally, EOM intact, sclera and conjunctive clear, no discharge, lids normal Ears: TMs intact and clear, ear canals clear, no drainage, grossly hearing normal. Nose: Nares patent, green nasal discharge, moderate inflammation, maxillary sinus tenderness. Mouth: Oral pharynx without lesions or masses, good dentition, MMM. Neck: Supple, trachea midline, no enlargement of anterior or posterior cervical nodes, no thyroid masses or goiter palpable. Cardio: Regular rate and rhythm, s1 and s2 normal, no murmur appreciated. Resp: Diminished in the bases otherwise clear, no rhonchi, rales, wheezing or rubs Course Course Emergency Course: Portions of this record may have been created with voice recognition software. Level of Care: Express Care Visit Vital Signs Vital signs: Vital Signs Temperature 35.7 C L 05/21/24 09:14 Pulse Rate 86 05/21/24 09:14 Respiratory Rate 18 05/21/24 09:14 Blood Pressure 148/79 H 05/21/24 09:14 Pulse Oximetry 100 05/21/24 09:14 Oxygen Delivery Room Air 05/21/24 09:14 Temperature 35.7 C L 05/21/24 09:14 Pulse Rate 86 05/21/24 09:14 Respiratory Rate 18 05/21/24 09:14 Blood Pressure 148/79 H 05/21/24 09:14 Pulse Oximetry 100 05/21/24 09:14 Oxygen Delivery Room Air 05/21/24 09:14 Vital signs reviewed MDM - URI/Sore Throat MDM Narrative Medical decision making narrative: At the time of visit patient is resting comfortably on the exam table. Patient appears to be nontoxic. Plan: I suspect patient has sinusitis/bronchitis. Prescription for azithromycin, prednisone, and albuterol inhaler was sent to the pharmacy. Supportive measures were discussed with the patient and they voiced understanding discharge instructions and agrees to treatment plan. Return precautions reviewed Differential Diagnosis Differential diagnosis: Likely upper respiratory infection, otitis media, sinusitis, viral infection, bronchitis, influenza, pharyngitis and other (COVID) Discharge Plan Discharge Clinical Impression: Sinobronchitis Patient Disposition: Home, Self-Care Condition: Stable Instructions: Antibiotic Form, Sinusitis (ED), Acute Bronchitis (ED) Additional Instructions: Take prescription medications only as prescribed Increase fluids and stay well hydrated Tylenol/motrin for pain/fever Flonase and OTC antihistamines as directed Vicks vapor rub to open sinuses Sinus rinses for congestion Cepacol spray, cough drops, throat lozenges, warm tea with honey/lemon, gargle salt water to soothe throat BRAT diet for diarrhea Clear liquids x 24 hours then advance as tolerated for nausea/vomiting Go to the ED if you develop a worsening in your condition- high fever not controlled by Tylenol or Motrin, dehydration, weakness, lethargy, shortness of breath, or chest pain. Follow up with your PCP in 3-5 days if symptoms persist. Patient Language: Maltese Prescriptions: New azithromycin 250 mg tablet See Rx Instructions .ROUTE .COMPLEX Qty: 6 0RF Rx Instructions: For 250 mg dose pack: take 500 mg today (day 1), then 250 mg for 4 days (days 2-5) prednisone 20 mg tablet 40 mg PO DAILY 5 Days Qty: 10 0RF albuterol sulfate 90 mcg/actuation HFA aerosol inhaler 2 puff inhalation Q4-6H PRN (Reason: shortness of breath or wheezing) 30 Days Qty: 8.5 0RF Follow-up/Referrals: Nahun,Yvon Velasquez MD [Primary Care Provider] - Time of Disposition: 09:26 Quality NIHSS Nursing Documentation ED NIHSS nursing documentation: reviewed/agree
[2024-05-21 09:14] VITALS: BP 148/79; PULSE 86; RESP 18; TEMP 35.7; O2SAT 100
== END 2024-05-21 09:37 | disposition home or self-care (01) ==
PROVIDERS: Emergency Provider Nurse Practitioner Family; PCP Internal Medicine
DX: J32.9 Chronic sinusitis, unspecified (principal); J40 Bronchitis, not specified as acute or chronic; E66.01 Morbid (severe) obesity due to excess calories; Z68.41 Body mass index [BMI] 40.0-44.9, adult
CPT/HCPCS: 99213; G0463

== ENCOUNTER 2025-02-01 18:25 | Emergency (ER) | payer OTHER, SELFPAY ==
--- NOTE | ~2025-02-01 | XR_ITS ---
EXAMINATION: XR ankle LT min 3V DATE: 02/01/2025 18:57 INDICATION: Lateral left ankle pain post fall 4 days prior TECHNIQUE: Anteroposterior, oblique, mortise, and lateral views of the left ankle were obtained. COMPARISON: None. FINDINGS: Alignment is normal. No fracture. Joint spaces are normal. Moderate sized plantar calcaneal spur. Prominent soft tissue swelling about the lateral malleolus. No evident ankle joint effusion. IMPRESSION: 1. No left ankle joint effusion or acute osseous abnormality. Reviewed, dictated and finalized at location A.
--- NOTE | ~2025-02-01 | XR_ITS ---
EXAMINATION: XR ankle RT min 3V DATE: 02/01/2025 18:57 INDICATION: Lateral right ankle pain post fall 4 days prior TECHNIQUE: Anteroposterior, oblique, mortise, and lateral views of the right ankle were obtained. COMPARISON: None. FINDINGS: Alignment is normal. No fracture. Joint spaces are well maintained. Moderate- sized plantar calcaneal spur. No ankle joint effusion. The soft tissues are unremarkable. IMPRESSION: 1. No right ankle joint effusion or acute osseous abnormality. Reviewed, dictated and finalized at location A.
--- OUTSIDE RECORDS SUMMARY | 2025-02-01 18:28 | XMS_ITS | Clinical Summary ---
Author Organization [facility] [address] [facility] Address [address] [place] [address] Care Team Providers Care Substation Operator Transforming Name Role Phone Sami Aviles MD Unavailable [phone] Ney Garnica MD Primary Care Provi sasha Allergies Active Allergy Reactions Criticality Noted Date Comments Amoxicillin Hives,Rash Medium 09/19/2023 Medications ketorolac (TORADOL) 10 mg tablet Take 1 tablet (10 mg total) by mouth every 6 (six) hours as needed for pain 15 tablet 4 Active HYDROcodone-ac etaminophen (NORCO) 5-325 mg per tabletIndicati ons:Pain Take 1 tablet by mouth every 4 (four) hours as needed for pain 15 tablet 4 Active ALPRAZolam (XANAX) 0.25 mg tablet TAKE 1 TABLET BY MOUTH TWICE DAILY NEEDED FOR ANXIETY 30 tablet 1 5 Active ALPRAZolam (XANAX) 0.25 mg tablet 1 PO bid PRN anxiety 30 tablet 1 4 01/25/20 25 Discontinued Active Problems Problem Noted Date Diagnosed Date Morbid obesity with BMI of 40.0-44.9, adult 04/09 Assessment & Plan (04/27/2024 2:08 PM INSULATION EXTRUDER OPERATOR): BMI Follow-up includes: nutrition counseling, exercise counseling, and education provided. Routine medical exam 04/27/2024 Assessment & Plan (04/27/2024 2:09 PM INSULATION EXTRUDER OPERATOR): Health maintenance objectives reviewed in orders placed for any outstanding screening if indicated. Physical exam performed as above. Acute appendicitis with loca lized peritonitis, without perforation, abscess, or gangrene 09/19/2023 Assessment & Plan (04/27/2024 2:09 PM INSULATION EXTRUDER OPERATOR): S/p nelson joaquin 09/2023 Immunizations Immunization Administration Dates Next Due DTaP 10/30/2015 Influenza, Quadrivalent, Wanda l Culture-based MDCK, Preservative Free, Antibiotic Free, Intramuscular 03/09/2023 Influenza, Quadrivalent, Split, Intramuscular Influenza, Quadrivalent, Spl it, Preservative Free, Intramuscular 04/02/2022,03/27/2020 Influenza, Trivalent, Cell C ulture-based MDCK, Preservative Free, Antibiotic Free, Intramuscular 04/01/2024 Influenza, Trivalent, IM (MDV) 03/18/2021 Tdap 11/10/2019,12/11/2016 Surgical History Surgery Date Site/Laterality Comments APPENDECTOMY 09/08/2023 - 10/07/2023 SECTION 10/2015 and 11/2019 Family History Medical History Relation Name Comments Hypertension Father Emphysema Maternal Grandfather Breast cancer Maternal Grandmother passed at age 33 Maternal Grandmother No Known Problems Mother plane crash Paternal Grandfather Lung cancer Paternal Grandmother passed at age 62 Paternal Grandmother No Known Problems Sister 1 No Known Problems Sister 2 Relation Name Status Comments Father Alive Maternal Grandfather Maternal Grandmother Mother Alive Paternal Grandfather Paternal Grandmother Sister 1 Alive Sister 2 Alive Social History Tobacco Use Types Packs/Day Years Used Date Smoking Tobacco: Former Cigarettes Passive Smoke Exposure: Never Smokeless Tobacco: Never Tobacco Cessation:Counseling Given: No AUDIT-C Answer Date Recorded Q1: How often do you have a drink containing alc ohol? Monthly or less 04/27/2024 Q2: How many drinks containi ng alcohol do you have on a typical day when you are drinking? 1 or 2 04/27/2024 Q3: How often do you have si x or more drinks on one occasion? Never 04/27/2024 Exercise Vital Sign Answer Date Recorde d On average, how many days pe r week do you engage in moderate to strenuous exercise (like a brisk walk)? 3 days 04/27/2024 On average, how many minutes do you engage in exercise at this level? 30 min 04/27/2024 Personal Safety Answer Date Recorded Have you ever been in or are you currently in a harmful physical or emotional relationship or is someone making you feel afraid or unsafe? Denies 09/19/2023 Comments No Sex and Gender Information Value Date Recorded Sex Assigned at Not on file Legal Sex Female 6:00 AM INSULATION EXTRUDER OPERATOR Gender Identity Not on file Sexual Orientation Not on file Obstetrics History Last Filed Vital Signs Vital Sign Reading Time Taken Comments Blood Pressure 134/78 04/27/2024 2:08 PM INSULATION EXTRUDER OPERATOR Pulse 107 04/27/2024 2:08 PM INSULATION EXTRUDER OPERATOR Temperature 36.7 C (98.1 F) 09/19/2023 2:40 PM CDT Respiratory Rate 14 09/19/2023 3:10 PM CDT Oxygen Saturation 99% 04/27/2024 2:08 PM INSULATION EXTRUDER OPERATOR Inhaled Oxygen Concentration - - Weight 118.4 kg (261 lb) 04/27/2024 2:08 PM INSULATION EXTRUDER OPERATOR Height 170.2 cm (5' 7) 04/27/2024 2:08 PM INSULATION EXTRUDER OPERATOR Body Mass Index 40.88 04/27/2024 2:08 PM INSULATION EXTRUDER OPERATOR Plan of Treatment Health Maintenance Due Date Last Done Comments Cervical Cancer Screening 1987 Depression Screening 1987 Hepatitis C Screening 1987 Hepatitis B Screening 10/16/2005 HPV Vaccines (1 - 3-dose SCDM series) 10/16/2014 Influenza Vaccine (#1) 2025 , 03/09/2023, 04/02/2022, Additional history exists Covid-19 Vaccine ( - season) 2025 03/18/2021, 08/12/2020, 07/15/2020 Postponed from 02/08/2024 (Patient declined, but will receive in the future) Regular Well Visit/Exam 18-64 04/27/2025 04/27/2024 Varicella Vaccines (1 of 2 - 13+ 2-dose series) 05/01/2025 Postponed from 10/16/2000 (Patient declined, but will receive in the future) DTaP/Tdap/Td Vaccine (4 - Td or Tdap) 11/09/2029 11/10/2019, 12/11/2016, 10/30/2015 Pneumococcal vaccine <65 Aged Out No longer eligible based on patient's age to complete this topic Insurance [facility] [employer] [employer] Care Teams Substation Operator Transforming Relationship Specialty Start Date End Date Ney Garnica MD [address] [facility] [address] [place] [id number] PCP - General Internal Medicine 04/27/24 Sami Aviles MD [address] [facility] [address] [place] [address] Consulting Physician General Surgery 09/19/23
[2025-02-01 18:31] VITALS: BP 131/85; PULSE 102; RESP 16; TEMP 36.2; O2SAT 99
--- NOTE | 2025-02-01 18:45 | ED_ITS ---
HPI - General Adult General Chief complaint: Extremity Injury, Lower Stated complaint: Bilateral Ankle Pain / Fall History of Present Illness HPI narrative: Angelica Christianson Is a 39-year-old female who presents today with reports rolling mostly her labs but also her right ankle and falling 4 days ago. She states that she has had continued pain to the left ankle but feels like he has got somewhat better still has some bruising to the lateral left ankle. But she says now today she is having some more pain to the right ankle medial aspect that feels like it might be getting worse. She is able to bear weight and has still been working standing on her her feet. She has been taking Tylenol and ibuprofen for the pain. Related Data Home Medications ?Medication ?Instructions ?Recorded ?Confirmed ?Last Taken ?Type No Home Medications 02/01/25 02/01/25 U nknown History Allergies Allergy/AdvReac Type Severity Reaction Status Date / Time amoxicillin Allergy Mild Hives Verified 02/01/25 18:28 Review of Systems Review of Systems: All systems reviewed & are unremarkable except as noted in HPI and below PMFSH Past Medical History Medical History Morbid obesity with BMI of 40.0-44.9, adult Family History Family History Other Unknown family medical history Social History Social History Smoking status: Never smoker Substance use: never Spiritual care concerns: No Exam Narrative: GENERAL: Well-appearing, well-nourished, and in no acute distress. HEAD: Normocephalic, atraumatic. EYES: PERRLA and EOMI. ENT: Nares clear, no rhinorrhea or epistaxis. Mucous membranes moist. CHEST: No respiratory distress. HEART: Normal peripheral pulses. EXTREMITIES: Normal range of motion. Left ankle with lateral ecchymosis and lateral malleolus swelling, right ankle with medial pain possible ecchymosis to the medial malleolus bilateral strong pedal pulses, neurovascular intact. SKIN: Warm, dry, no rash. NEURO: No focal deficits. Alert and oriented x3. PSYCH: Normal mood and affect. Course Course Level of Care: Express Care Visit Vital Signs Vital signs: Vital Signs Temperature 36.2 C L 02/01/25 18:31 Pulse Rate 102 H 02/01/25 18:31 Respiratory Rate 16 02/01/25 18:31 Blood Pressure 131/85 02/01/25 18:31 Pulse Oximetry 99 02/01/25 18:31 Oxygen Delivery Room Air 02/01/25 18:31 Temperature 36.2 C L 02/01/25 18:31 Pulse Rate 102 H 02/01/25 18:31 Respiratory Rate 16 02/01/25 18:31 Blood Pressure 131/85 02/01/25 18:31 Pulse Oximetry 99 02/01/25 18:31 Oxygen Delivery Room Air 02/01/25 18:31 Medical Decision Making MDM Narrative Medical decision making narrative: Patient presented to the ED with complaint of left foot pain after inversion injury, with also possible inversion of right ankle as well. Left ankle with lateral ecchymosis and lateral malleolus swelling, right ankle with medial pain possible ecchymosis to the medial malleolus bilateral strong pedal pulses, neurovascular intact.. Based on the patient's history and physical exam, I am concerned for fracture vs sprain. Patient has taken ibuprofen for pain. Ankle= xrays were obtained showing No right or left joint effusion or acute osseous abnormality WILLIAM wrap applied to both injured extremities. MONTIEL therapy encouraged PCP follow up ortho referral DISPOSITION: Home FOLLOW UP: Orthopedics FINAL IMPRESSION(S): 1. bilateral ankle sprains Medical Records Medical records reviewed: Yes I reviewed the external patient's medical records. Vital Signs Vital Signs: Vital Signs Temperature 36.2 C L 02/01/25 18:31 Pulse Rate 102 H 02/01/25 18:31 Respiratory Rate 16 02/01/25 18:31 Blood Pressure 131/85 02/01/25 18:31 Pulse Oximetry 99 02/01/25 18:31 Oxygen Delivery Room Air 02/01/25 18:31 Temperature 36.2 C L 02/01/25 18:31 Pulse Rate 102 H 02/01/25 18:31 Respiratory Rate 16 02/01/25 18:31 Blood Pressure 131/85 02/01/25 18:31 Pulse Oximetry 99 02/01/25 18:31 Oxygen Delivery Room Air 02/01/25 18:31 Vitals reviewed by nm Imaging Data Radiologist's impression: Impressions Ankle X-Ray 02/01/25 19:20 IMPRESSION: 1. No left ankle joint effusion or acute osseous abnormality. Ankle X-Ray 02/01/25 19:30 IMPRESSION: 1. No right ankle joint effusion or acute osseous abnormality. Discharge Plan Discharge Clinical Impression: Ankle sprain and strain Patient Disposition: Home Condition: Stable Instructions: Antibiotic Form Additional Instructions: Continue to wear the william wraps, Elevate, Ice your ankles at rest You may bear weight as tolerated Continue the Ibuprofen at least 3 times a day for at least 4 more days Your xrays today did not show a broken bone, however there are several important ligaments that help support the stability of your ankles, these are likely strained and need time to heal, if you continue to have pain after 10 days of resting/ice/ elevating and wearing the william then please follow up with orthopedics or your PCP may be able to help. These injuries sometimes require physical therapy to strengthen the ligaments. Of course if you develop new or worsening symptoms then seek emergency care. Patient Language: Slovak Prescriptions: No Action No Home Medications Follow-up/Referrals: Nahun,Yvon Velasquez MD [Primary Care Provider] - 1 Week Benigno Altman MD [Physician, Orthopedics] - 2 Weeks Time of Disposition: 19:40
== END 2025-02-01 19:41 | disposition home or self-care (01) ==
PROVIDERS: Emergency Provider Nurse Practitioner Family; PCP Internal Medicine
DX: S93.401A Sprain of unspecified ligament of right ankle, initial encounter (principal); S93.402A Sprain of unspecified ligament of left ankle, initial encounter; X58.XXXA Exposure to other specified factors, initial encounter; E66.9 Obesity, unspecified; Z68.39 Body mass index [BMI] 39.0-39.9, adult
CPT/HCPCS: 73610; 99214; G0463

== ENCOUNTER 2025-03-28 15:41 | Outpatient (CLI) | payer OTHER, SELFPAY ==
--- NOTE | ~2025-03-28 | MM_ITS ---
EXAMINATION: MM screening emily BI w chai HISTORY: Screening TECHNIQUE: Craniocaudal and mediolateral oblique 3-D tomosynthesis images were obtained and synthetic 2-D images were generated. CAD analysis was submitted and interpreted. COMPARISON: 01/07/2024 BREAST PARENCHYMAL COMPOSITION: There are scattered areas of fibroglandular density. FINDINGS: There is no evidence of suspicious mass, calcification, or architectural distortion to suggest malignancy in either breast. IMPRESSION: 1. No mammographic evidence of malignancy. 2. Recommend routine screening mammography in one year. BI-RADS Category 1: Negative Reviewed, dictated and finalized at location B.
== END 2025-03-28 15:42 | disposition home or self-care (01) ==
PROVIDERS: PCP Obstetrics & Gynecology; Visit Provider Obstetrics & Gynecology
DX: Z12.31 Encounter for screening mammogram for malignant neoplasm of breast (principal)
CPT/HCPCS: 77063; 77067